=== PATIENT | female | born 1980 | race Caucasian/White ===

== ENCOUNTER → 2022-08-23 14:26 | Outpatient (CLI) | payer OTHER, SELFPAY ==
--- NOTE | 2022-08-23 14:26 | US_ITS ---
PROCEDURE INFORMATION: Exam: US Left Breast, Complete MG Bilateral Diagnostic Breast Tomosynthesis Exam date and time: 08/23/2022 2:42 PM Age: 41 years old Clinical indication: Left breast palpable lump; Left breast pain TECHNIQUE: Imaging protocol: Complete ultrasound of all four quadrants of the left breast and the retroareolar regions, including ultrasound of the axilla when performed. Bilateral Diagnostic tomosynthesis and 2D mammography including computer-aided detection (CAD) when performed. Unilateral or bilateral exam. COMPARISON: 1. MG MM MAMMO DIGITAL STEPH SCREEN BILAT 12/22/2020 10:35 AM 2. MG MM MAMMO DIGITAL STEPH SCREEN BILAT 03/08/2019 12:28 PM FINDINGS: MAMMOGRAPHY: The breast tissue is composed of scattered areas of fibroglandular density. There is no stellate mass, architectural distortion or suspicious microcalcifications in either breast to suggest malignancy. A skin marker was placed over an area of palpable concern in the left upper outer quadrant. Coarse nonspecific nodular parenchyma is identified. No skin thickening or axillary adenopathy. ULTRASOUND: Sonographic images of the left upper outer quadrant where the patient reports a palpable abnormality demonstrates a cluster of cysts with a combined dimension of 1.9 cm most closely corresponding to the nonspecific coarse nodular parenchyma on mammography. Additional deep 1.1 cm cyst in the 2 o'clock axis 7 cm from the nipple adjacent to a 1.0 cm cyst. Additional subcentimeter cystic changes noted in the 10 o'clock axis 9 cm from the nipple adjacent to a cluster of cysts with a combined dimension of 1.8 cm in the left 11 o'clock axis 7 cm from the nipple. No axillary adenopathy. IMPRESSION: Palpable abnormality in the left upper outer quadrant corresponds to underlying cystic change. Further evaluation of a palpable abnormality should be based on clinical grounds regardless of radiographic findings or lack thereof.No mammographic evidence of malignancy. Annual screening is recommended unless otherwise clinically indicated. ASSESSMENT: BI-RADS Category 2: Benign
== END ==
LOC: RAD 14:26
PROVIDERS: PCP Nurse Practitioner; Visit Provider Nurse Practitioner
DX: N60.11 Diffuse cystic mastopathy of right breast (principal); N60.12 Diffuse cystic mastopathy of left breast; N64.4 Mastodynia
CPT/HCPCS: 76641; 77062; 77066; G0279

== ENCOUNTER 2023-02-27 19:41 | Outpatient (CLI) | payer OTHER, SELFPAY ==
[2023-02-27 19:48] LABS: Adenovirus,PCR Not Detected (NotDetected); Coronavirus 19, PCR Not Detected (NotDetected); Coronavirus 229E Not Detected (NotDetected); Coronavirus NL63 Not Detected (NotDetected); Coronavirus OC43 Not Detected (NotDetected); Coronovirus HKU1,PCR Not Detected (NotDetected); Human Metapneumovirus Not Detected (NotDetected); Influenza A, PCR Not Detected (NotDetected); Influenza AH1, 2009 Not Detected (NotDetected); Influenza AH1, PCR Not Detected (NotDetected); Influenza AH3,PCR Not Detected (NotDetected); Influenza B, PCR Not Detected (NotDetected); Parainfluenza 1, PCR Not Detected (NotDetected); Parainfluenza 2, PCR Not Detected (NotDetected); Parainfluenza 3, PCR Not Detected (NotDetected); Parainfluenza 4, PCR Not Detected (NotDetected); Respiratory Syncytial Virus Not Detected (NotDetected); Rhinovirus/Enterovirus Not Detected (NotDetected)
[2023-02-27 19:56] LABS: Basophils % 0.3 % (0.1-2.0); Eosinophils % 0.1 % (0.1-12.0); Hematocrit 42.8 % (37.0-47.0); Hemoglobin 13.9 g/dL (12.2-16.2); Lymphocytes # 0.9 K/mm3 (0.7-4.5); Lymphocytes % 6.1 % (10-50); Mean Corpuscular HGB Conc 32.4 g/dL (31.8-35.4); Mean Corpuscular Hemoglobin 31.9 pg (27.0-31.2); Mean Corpuscular Volume 98.2 fl (81-99); Mean Platelet Volume 9.6 fl (7.4-10.4); Monocytes # 0.9 K/mm3 (0.1-1.0); Monocytes % 5.6 % (1.7-9.3); Neutrophils # 13.8 K/mm3 (1.8-7.8); Platelet Count 322 K/mm3 (142-424); Red Blood Count 4.35 M/mm3 (4.20-5.40); Red Cell Distribution Width 13.3 % (11.5-17.5); White Blood Count 15.7 K/mm3 (4.8-10.8)
[2023-02-27 20:02] LABS: MANUAL DIFFERENTIAL MANUAL DIFFERENTIAL (MANUAL DIFF)
[2023-02-27 20:13] LABS: Chloride 104 mmol/L (98-107)
[2023-02-27 20:14] LABS: Sodium 135 mmol/L (136-145)
[2023-02-27 20:16] LABS: Alanine Aminotransferase 18 U/L (12-78); Alkaline Phosphatase 84 U/L (38-126); Aspartate Amino Transferase 19 U/L (14-36); Bilirubin,Total 0.6 mg/dl (0.2-1.3); Blood Urea Nitrogen 8 mg/dl (7-17); Carbon Dioxide 25 mmol/L (22.0-30.0); Estimated Glomerular Filt Rate 91 ml/min (>60); GFR (African American) 110 ML/MIN (>60)
[2023-02-27 20:17] LABS: Albumin Level 3.5 g/dl (3.5-5.0); Albumin/Globulin Ratio 1.2 (1.1-1.8); Calcium 8.7 mg/dl (8.4-10.2); Glucose 117 mg/dl (74-100); Total Protein,Serum 6.5 g/dl (6.3-8.2)
[2023-02-27 20:45] LABS: Lymphocytes % 6 % (10-50); Monocytes % 3 % (2-9); Neutrophils % 90 % (42-76); Platelet Estimate Normal; RBC Morphology Normal; Total Cells Counted 100
== END 2023-02-27 23:59 ==
LOC: LAB.DROPOF 19:42
PROVIDERS: PCP Nurse Practitioner; Visit Provider Nurse Practitioner
DX: J06.9 Acute upper respiratory infection, unspecified (principal); J02.9 Acute pharyngitis, unspecified; R05.8 Other specified cough; R51.9 Headache, unspecified
CPT/HCPCS: 80053; 85007; 85025; 87581; 87632; 87635; 87798

== ENCOUNTER 2023-10-28 12:59 | Outpatient (CLI) | payer OTHER, SELFPAY ==
--- NOTE | 2023-10-28 13:00 | MM_ITS ---
PROCEDURE INFORMATION: Exam: MG Bilateral Screening 3D Mammography Exam date and time: 10/28/2023 12:49 PM Age: 42 years old Clinical indication: Screening examination TECHNIQUE: Imaging protocol: Bilateral Screening tomosynthesis and 2D mammography including computer-aided detection (CAD) when performed. COMPARISON: 1. MG MM DIG MAMM BI DX W/CAD 08/23/2022 2:42 PM 2. MG MM MAMMO DIGITAL STEPH SCREEN BILAT 12/22/2020 10:35 AM FINDINGS: MAMMOGRAPHY: Breast composition: The breasts are heterogeneously dense, which may obscure small masses. Mass: None. Architectural distortion: None. Calcifications: No suspicious calcifications. Asymmetric density: None. Skin thickening: None. Axillary adenopathy: None. IMPRESSION: No mammographic evidence of malignancy. Annual screening is recommended unless otherwise clinically indicated. ASSESSMENT: BI-RADS Category 1: Negative.
[2023-10-28 18:42] LABS: Basophils # 0.1 K/mm3 (0-0.2); Basophils % 1.3 % (0.1-2.0); Eosinophils # 0.2 K/mm3 (0.0-0.4); Eosinophils % 2.1 % (0.1-12.0); Hematocrit 46.1 % (37.0-47.0); Hemoglobin 14.2 g/dL (12.2-16.2); Lymphocytes # 1.9 K/mm3 (0.7-4.5); Lymphocytes % 24.6 % (10-50); Mean Corpuscular HGB Conc 30.7 g/dL (31.8-35.4); Mean Corpuscular Hemoglobin 30.6 pg (27.0-31.2); Mean Corpuscular Volume 99.6 fl (81-99); Monocytes # 0.5 K/mm3 (0.1-1.0); Monocytes % 6.2 % (1.7-9.3); Neutrophils % 65.8 % (37.0-80.0); Platelet Count 386 K/mm3 (142-424); Red Blood Count 4.63 M/mm3 (4.20-5.40); Red Cell Distribution Width 13.7 % (11.5-17.5); White Blood Count 7.5 K/mm3 (4.8-10.8)
[2023-10-28 19:17] LABS: Albumin Level 3.6 g/dl (3.5-5.0); Chloride 109 mmol/L (98-107); Potassium 4.1 mmoL/L (3.5-5.1); Sodium 139 mmol/L (136-145)
[2023-10-28 19:19] LABS: Blood Urea Nitrogen 12 mg/dl (7-17); Estimated Glomerular Filt Rate 109 ml/min (>60); GFR (African American) 131 ML/MIN (>60)
[2023-10-28 19:20] LABS: Alanine Aminotransferase 23 U/L (12-78); Albumin/Globulin Ratio 1.2 (1.1-1.8); Alkaline Phosphatase 76 U/L (38-126); Anion Gap 8.1 mEq/L (5-15); Aspartate Amino Transferase 22 U/L (14-36); Bilirubin,Total 0.8 mg/dl (0.2-1.3); Calcium 8.8 mg/dl (8.4-10.2); Carbon Dioxide 26 mmol/L (22.0-30.0); Cholesterol 204 mg/dl (140-200); Globulin 3.1 g/dL (1.3-3.2); Glucose 63 mg/dl (74-100); HDL Cholesterol 51 mg/dl (40-60); Total Protein,Serum 6.7 g/dl (6.3-8.2); Triglycerides 97 mg/dl (30-150); VLDL Cholesterol 19 mg/dL (0-40)
[2023-10-28 19:22] LABS: Erythrocyte Sedimentation Rate 8 mm/hr (0-20)
[2023-10-28 19:36] LABS: C-Reactive Protein 2.9 mg/L (0-4)
[2023-10-28 19:40] LABS: Direct LDL Cholesterol 126.45 mg/dL (100-129)
[2023-10-28 19:42] LABS: 25-OH Vitamin D, Total 24.2 ng/mL (30-100)
[2023-10-28 20:07] LABS: Thyroid Stimulating Hormone 0.96 uIU/mL (0.465-4.68)
[2023-10-28 21:00] LABS: Hemoglobin A1C 5.3 % (4.0-6.0)
[2023-10-28 21:45] LABS: Uric Acid 4.4 mg/dl (2.5-6.2)
[2023-10-28 22:47] LABS: Vitamin B12 362 pg/mL (239-931)
[2023-10-30 12:39] LABS: RA Latex Turbid. 10.1 IU/mL (<14.0)
[2023-10-30 15:25] LABS: Anti-Centromere B Antibodies <0.2 AI (0.0-0.9); Anti-DNA (DS) Ab Qn <1 IU/mL (0-9); Anti-Jo-1 <0.2 AI (0.0-0.9); Anti-Smith Antibody <0.2 AI (0.0-0.9); Antichromatin Antibodies <0.2 AI (0.0-0.9); Antiscleroderma-70 Antibodies <0.2 AI (0.0-0.9); RNP Antibodies 0.3 AI (0.0-0.9); Sjogren's Anti-SS-A <0.2 AI (0.0-0.9); Sjogren's Anti-SS-B <0.2 AI (0.0-0.9)
[2023-11-06 16:14] LABS: Antinuclear Antibodies, IFA Positive
== END 2023-10-28 23:59 | disposition home or self-care (01) ==
LOC: RAD 13:00
PROVIDERS: PCP Nurse Practitioner; Visit Provider Obstetrics & Gynecology
DX: Z12.31 Encounter for screening mammogram for malignant neoplasm of breast (principal); R60.0 Localized edema; M79.671 Pain in right foot; R53.83 Other fatigue; R51.9 Headache, unspecified; M25.50 Pain in unspecified joint
CPT/HCPCS: 77063; 77067; 80050; 80053; 80061; 82306; 82607; 83036; 84443; 84550; 85025; 85651; 86038; 86140; 86225; 86235; 86431

== ENCOUNTER 2023-11-14 09:30 | Outpatient (CLI) | payer OTHER, SELFPAY | END 2023-11-14 23:59 | disposition home or self-care (01) | LOC: PREOP 09:31 | PROVIDERS: PCP Nurse Practitioner; Visit Provider Otolaryngology | DX: R69 Illness, unspecified (principal) ==

== ENCOUNTER 2023-11-17 14:50 | Outpatient (CLI) | payer OTHER, SELFPAY ==
--- NOTE | 2023-11-17 14:54 | CA_ITS ---
APPROVED REPORT EXAM: Comprehensive 2D, Doppler, and color-flow Echocardiogram Photographer Apprentice: Melissa Barajas CRT Ht: 5 ft 3 in Wt: 186lbs BSA: 1.88 BP: 94/66 mmHg Indications: Peripheral Edema, weight gain in 4 weeks 2D Dimensions LA Volume 23.50 mL LA Volume Index 12.20 mL/m2 (M/F) 16-34 M-Mode Dimensions RVDd 2.42 cm (0.9-2.6) LA Diam 2.94 cm (1.9-4.0) LVDd 4.33 cm (3.5-5.7) LVDs 2.45 cm (3.5-5.7) IVSd 1.47 cm (0.6-1.1) PWd 0.91 cm (0.6-1.1) EF (Teich) 74.90% FS 43.40% EDV (Teich) 84.40 mL ESV (Teich) 21.20 mL LV Diastology E Decel Time 150 (160-240 msec) E/A Ratio 1.27 MED A' 13.70 cm/s LAT A' 8.40 cm/s Aortic Valve AO Peak GR. 6.20 mmHg Mitral Valve MV A Velocity 54.0 (40-130 cm/s) E/A Ratio 1.27 Pulmonary Valve PV Peak Velocity 142.0 (50-150 cm/s) Tricuspid Valve TR P. Velocity 293.00 cm/s RAP Estimate 10.00 mmHg RVSP 44.40 mmHg Left Ventricle The left ventricle is normal size. The left ventricular systolic function is normal. The left ventricular ejection fraction is within the normal range. There is normal left ventricular wall thickness. There is normal LV segmental wall motion. The left ventricular diastolic function is normal. LVEF is 55%. Right Ventricle The right ventricle is not very well-visualized, but grossly appears to be at least mildly dilated. Right ventricle is mildly hypokinetic. Atria The left atrium size is normal. The right atrium size is normal. There is no Doppler evidence of interatrial shunt. Aortic Valve The aortic valve opens well. There is no aortic valvular stenosis. No aortic regurgitation is present. Mitral Valve The mitral valve is normal in structure. No evidence of mitral valve stenosis. Mild mitral regurgitation. Tricuspid Valve The tricuspid valve leaflets are thin and pliable. Mild to moderate tricuspid regurgitation. RVSP is 35-40 mmHg. Pulmonic Valve The pulmonary valve is normal in structure. Trace pulmonic regurgitation. Great Vessels The aortic root is normal in size. The ascending aorta is normal in size. IVC is normal in size and collapses >50% with inspiration. Pericardium There is no pericardial effusion. Other Information Study Quality: Technically Difficult Conclusion Technically difficult study due to poor acoustic windows. Normal LV systolic function. The RV is not very well-visualized, but appears at least mildly dilated. The RV function is mildly reduced. Mild to moderate TR. Mild MR. RVSP 35-40 mmHg. Color Doppler demonstrates no evidence of interatrial shunt. In the setting of RV dysfunction, further evaluation with limited TTE and agitated saline administration (bubble study) is rule out evaluate for interatrial shunt. Cardiac MRI ([facility] protocol) is also suggested. Pulmonary workup and/or sleep evaluation may also be considered, if clinically appropriate. Electronically signed by : Raiza Ramirez MD 11/17/2023 23:23:23
== END 2023-11-17 23:59 | disposition home or self-care (01) ==
LOC: RT 14:51
PROVIDERS: PCP Nurse Practitioner; Visit Provider Nurse Practitioner
DX: R60.0 Localized edema (principal)
CPT/HCPCS: 93306

== ENCOUNTER 2023-11-18 08:05 | Day surgery (SDC) | payer OTHER, SELFPAY ==
[2023-11-14 09:40] VITALS: BMI 31.8
[2023-11-14 10:05] LABS: Urine Pregnancy, HCG Qual. Negative (Negative)
[2023-11-18] VITALS (10 sets, daily range): BP systolic 115–157; BP diastolic 73–93; PULSE 71–113; RESP 14–18; TEMP 36.3–36.7; O2SAT 92–100
[2023-11-18] MEDS: LACTATED RINGERS 1000ML 1,000 ML 25 ML IV (08:35)
--- NOTE | 2023-11-18 08:42 | P.PNANES_ITS ---
[facility] Disclaimer: The information contained in this section may have been updated after the patient was seen, as this information can be updated by other users. Medical History Positive ADDISON (antinuclear antibody) Polyarthralgia Headache Fatigue Right foot pain Bilateral lower extremity edema Enlarged tonsils Fibrocystic breast changes of both breasts Insomnia Surgical History History of endometrial ablation Family History Father Cancer Grandmother Stroke Social History Smoking Status: Never smoker alcohol intake: never substance use type: denies use current occupational status: employed Travel in the last 8 weeks: None [facility] Anesthesia Checklist Patient Identification Patient Identification: Arm Band and Verbal (Name & ) Structural Data Admitted From: Home Planned Operative Procedure/s: Tonsillectomy Consent for Planned Operative Procedure(s) Verified: Yes Verified Documents: Surgical Consent and History and Physical NPO Status Verified Time NPO: 00:00 Chart Verification Results Verified: HCG Additional verifications Anesthesia Reactions: No Hx Blood Transfusions: No Blood Transfusion Reaction: No Airway Assessment Mallampati Score:: Class I C-Spine Mobility Assessed: Yes TMJ Mobility Assessed: Yes Dentition: Good Dentition Neurological Assessment Level of Consciousness: Awake Hx Seizures: No Numbness or tingling in extremities: No Anesthesia Plan Anesthesia Risk discussed: Yes Anesthesia Plan: Verified ASA Class: II Anesthesia Type: General
[2023-11-18] MEDS: BUPIVACAINE 0.5% W/EPI 1:200,000 30ML VIAL 30 ML IJ (10:10)
--- NOTE | 2023-11-18 10:52 | P.PNANES_ITS ---
[facility] Anesthesia Record Part I Anesthesia Record I Intake, IV Amount: 800 Hydration: Adequate Estimated blood loss (mL): 10 Urine output (mL): 0 Blood Products used (#): none Blood Pressure: 137/73 SaO2: 100 Pulse Rate: 106 Airway Patency: Patent Respiratory Rate: 16 Temperature: 97.3 F Patient is:: Drowsy and Stable Stable to PACU at:: 10:50
--- NOTE | 2023-11-18 10:55 | P.OP_ITS ---
Date of procedure: 11/18/23 Pre-op Diagnosis:: Chronic tonsillitis Post-op Diagnosis:: Chronic tonsillitis Procedure performed:: Tonsillectomy Surgeon:: Robin Haney MD COMPLAINT OPERATOR:: Eldon Reyes Anesthesia: GETKristine Estimated blood loss (mL): 50 Operative findings:: 3+ enlarged inflamed tonsils Operative note:: The patient was brought to the operating room and after adequate general anesthesia the mouth was draped in the usual sterile fashion and a McIvor mouthgag placed. Tonsillectomy was then performed in the plane defined by the tonsil capsule and superior constrictor and this was done with electrocautery to simultaneously dissected and cauterized. This was done bilaterally and then tonsillar fossa's infiltrated with half percent Marcaine with epinephrine Condition: stable Disposition: PACU Complications:: No complications
--- NOTE | 2023-11-18 13:09 | P.PNANES_ITS ---
[facility] Anesthesia Record Part II Anesthesia Record Part II Discharge Time: 11:15 Destination: Surgical Day Care (OP Surgery) PACU nurse assessment reviewed?: Yes Patient Condition:: Good Anesthesia Complications:: None Swallowing reflex intact?: Yes Airway Patency: Patent Cyanosis?: No Blood Pressure: 153/93 SaO2: 100 Respiratory Rate: 16 Pulse Rate: 90 Temperature: 97.7 F Mental Status: Alert & Oriented Pain level:: 0 Nausea and/or vomitting:: None Intake, IV Amount: 0 Hydration: Adequate
== END 2023-11-18 11:50 | disposition home or self-care (01) ==
PROVIDERS: Nurse Anesthetist, Certified Registered; Visit Provider Otolaryngology
PROC: (CPT 42826; principal; 2023-11-18 09:30)
DX: J35.01 Chronic tonsillitis (principal)
CPT/HCPCS: 42826; 81025; J3490; J1100; J2250; J2405; J3010; J7120

== ENCOUNTER 2023-11-22 19:36 | Emergency (ER) | payer OTHER, SELFPAY ==
[2023-11-22 19:59] VITALS: BP 148/96; PULSE 89; RESP 18; TEMP 36.6; O2SAT 96; BMI 31.8
--- NOTE | 2023-11-22 20:00 | ED_ITS ---
Discharge Plan Disposition Patient Disposition: Home, Self-Care Prescriptions Prescriptions: New amoxicillin 500 mg capsule 1,000 mg PO TID 5 Days Qty: 30 0RF azithromycin 250 mg tablet 250 mg PO DAILY 4 Days Qty: 4 0RF Rx Instructions: start on day 2 of therapy (day after ED visit) No Action cholecalciferol (vitamin D3) 125 mcg (5,000 unit) tablet 125 mcg PO DAILY Qty: 30 5RF hydrocodone-acetaminophen 7.5-325 mg/15 mL solution 15 ml PO Q6H PRN (Reason: pain) 7 Days Qty: 473 0RF prednisone 5 mg/5 mL solution 10 mg PO DAILY 4 Days Qty: 40 0RF Tetracaine Lollipops (0.5%) 1 ea lozenge on a handle 1 ea PO Q1H MDD use x 1min q1h prn PRN (Reason: pain (scale score 4-6)) 7 Days Qty: 4 1RF Rx Instructions: 0.5% tetracaine lollipops promethazine 25 mg tablet 25 mg PO Q6H PRN (Reason: nausea and vomiting) Qty: 14 0RF Tetracaine Lollipops (0.5%) 1 ea lozenge on a handle 1 ea PO Q1H MDD use q1h x 1 min prn PRN (Reason: pain (scale score 4-6)) 7 Days Qty: 4 1RF Rx Instructions: 0.5% tetracaine lollipops Referrals Follow up/Referrals: Malena Grimaldo APRN [Primary Care Provider] - See instructions Activity Restrictions/Add. Instructions Additional Instructions/Restrictions: Your workup today revealed lingual swelling consistent with tonsillitis as well as apical multifocal pneumonia. Please take antibiotics as prescribed follow-up with ENT as soon as possible as well as your primary care doctor and return with any significant shortness of breath difficulty swallowing or breathing or other concerns. Clinical Impressions Clinical Impression: Post-operative pain, Acute dehydration, Acute lingual tonsillitis, Multifocal pneumonia Print Language Print Language: Kyrgyz Discharge ED Provider: Collins Snyder General Adult HPI General Chief complaint: PAIN Stated complaint: Pain from tonsille removalon Friday Time Seen by Provider: 11/22/23 19:44 History of Present Illness HPI narrative: Patient is a 42-year-old female who is several days postop from a T&A from Dr. Haney. She states that she had pain control for about 24 hours but since that time has had progressively worsening pain despite prescribed medications and has got to the point where it has been unbearable. She does feel some discomfort particular in the left side of her surgical site and into her neck. No significant swelling fevers chills she does states she is having a hard time opening her jaw but no drooling or stridor. Has had difficult time eating secondary to the discomfort. Urine output has been normal. Denies any other significant past medical history. Related Data Previous Rx's ?Medication ?Instructions ?Recorded cholecalciferol (vitamin D3) 125 125 mcg PO DAILY #30 tabs 11/06/23 mcg (5,000 unit) tablet Tetracaine Lollipops (0.5%) 1 ea 1 ea PO Q1H PRN pain (scale score 11/18/23 lozenge on a handle 4-6) 7 days #4 ea Tetracaine Lollipops (0.5%) 1 ea 1 ea PO Q1H PRN pain (scale score 11/18/23 lozenge on a handle 4-6) 7 days #4 ea hydrocodone 7.5 mg-acetaminophen 15 ml PO Q6H PRN pain 7 days #473 11/18/23 325 mg/15 mL oral solution mL prednisone 5 mg/5 mL oral solution 10 mg (10 mL) PO DAILY 4 days #40 11/18/23 mL promethazine 25 mg tablet 25 mg PO Q6H PRN nausea and 11/18/23 vomiting #14 tabs amoxicillin 500 mg capsule 1,000 mg (2 x 500 mg) PO TID 5 11/22/23 days #30 caps azithromycin 250 mg tablet 250 mg PO DAILY 4 days #4 tabs 11/22/23 Allergies Allergy/AdvReac Type Severity Reaction Status Date / Time aspartame Allergy Mild Swelling Verified 11/18/23 08:24 of Lip/Tongue/Throat hydrochlorothiazide Allergy Mild Swelling Verified 11/18/23 08:24 of Lip/Tongue/Throat Latex, Natural Rubber Allergy Mild Rash Verified 11/18/23 08:24 adhesive tape Allergy Rash Verified 11/18/23 08:24 nasal spray Allergy Mild Swelling Uncoded 11/14/23 09:37 of the Eye [facility] Disclaimer: The information contained in this section may have been updated after the patient was seen, as this information can be updated by other users. Medical History Positive ADDISON (antinuclear antibody) Polyarthralgia Headache Fatigue Right foot pain Bilateral lower extremity edema Enlarged tonsils Fibrocystic breast changes of both breasts Insomnia Surgical History History of endometrial ablation Family History Father Cancer Grandmother Stroke Social History (Updated 11/18/23 @ 08:43 by Kyree Mcclure CRNA) Smoking Status: Never smoker alcohol intake: never substance use type: denies use current occupational status: employed Travel in the last 8 weeks: None ROS Obtained: Yes All systems reviewed & no additional complaints except as documented Physical Exam General General appearance: alert and in no apparent distress ENT ENT exam: Present other (Mucous membranes are dry, surgical fossa's have appropriate eschars without any evidence of bleeding or soft tissue swelling or asymmetry in the soft tissues no trismus tolerating secretions well without any stridor) Neck Neck exam: Present other (Symmetric soft tissues in the neck no significant lymphadenopathy or swelling); Absent lymphadenopathy Respiratory Respiratory exam: Present normal lung sounds bilaterally Cardiovascular Cardiovascular exam: Present regular rate Neurological Exam Neurological exam: Present alert and oriented X3 Medical Decision Making Medical Records Screening: Per USPSTF and CDC recommendations, given the prevalence of disease in our region, it is our hospital?s policy to screen for HIV and viral Hepatitis for all patients aged 18 and over and those with ongoing risk factors. Manoj Inquiry Pt receiving controlled substance: No Vital Signs: 11/22/23 19:59 11/22/23 20:35 11/22/23 21:31 Temperature 97.8 F Temperature Source Oral Pulse Rate 85 66 Pulse Rate [Left Radial] 89 Respiratory Rate 18 Blood Pressure 138/84 123/73 Blood Pressure [Right Arm] 148/96 H Blood Pressure Mean 108 89 Blood Pressure Mean [Right Arm] 113 Blood Pressure Source [Right Arm] Automatic Cuff 02 Sat by Pulse Oximetry 96 96 99 Oxygen Delivery Method Room Air Room Air Room Air 11/22/23 22:00 Temperature Temperature Source Pulse Rate 64 Pulse Rate [Left Radial] Respiratory Rate Blood Pressure 113/72 Blood Pressure [Right Arm] Blood Pressure Mean Blood Pressure Mean [Right Arm] Blood Pressure Source [Right Arm] 02 Sat by Pulse Oximetry 97 Oxygen Delivery Method Lab Data Lab results reviewed: Yes I reviewed the patient's lab results. Lab Results 11/22/23 20:38: WBC 9.1, RBC 4.09 L, Hgb 12.5, Hct 38.0, MCV 92.9, MCH 30.5, MCHC 32.8, RDW 13.2, Plt Count 331, MPV 7.8, Neut % (Auto) 51.6, Lymph % (Auto) 37.1, [place] % (Auto) 7.9, Eos % (Auto) 2.6, Baso % (Auto) 0.9, Neut # (Auto) 4.7, Lymph # (Auto) 3.4, [place] # (Auto) 0.7, Eos # (Auto) 0.2, Baso # (Auto) 0.1, Sodium 138, Potassium 3.1 L, Chloride 105, Carbon Dioxide 27, Anion Gap 9.1, BUN 7, Creatinine 0.60, Estimated Creat Clear 154, Estimated GFR 109, Est GFR ( Amer) 131, Glucose 92, Calcium 8.5, Total Bilirubin 0.5, AST 19, ALT 20, Alkaline Phosphatase 68, Total Protein 6.5, Albumin 3.4 L, Globulin 3.1, Albumin/Globulin Ratio 1.1, HIV 1&2 Antibody Rapid Nonreactive 11/22/23 20:38 11/22/23 20:38 Orders (Tests/Meds): ED MEDICATIONS Generic Name Dose Route Start Last Admin Trade Name Freq PRN Reason Stop Dose Admin Amoxicillin 1,000 mg 11/22/23 22:22 Amoxicillin 500mg Capsule PO 11/22/23 22:23 ONCE ONE Azithromycin 500 mg 11/22/23 22:22 Azithromycin 250mg Tablet PO 11/22/23 22:23 ONCE ONE Discontinued Medications Generic Name Dose Route Start Last Admin Trade Name Freq PRN Reason Stop Dose Admin Hydromorphone HCl 0.5 mg 11/22/23 19:58 11/22/23 20:08 Hydromorphone 2mg/Ml Syringe IV 11/22/23 19:59 0.5 mg ONCE ONE Administration Hydromorphone HCl 1 mg 11/22/23 20:39 11/22/23 20:49 Hydromorphone 2mg/Ml Syringe IV 11/22/23 20:40 1 mg ONCE ONE Administration Lactated Ringer's 1,000 mls @ 999 mls/hr 11/22/23 20:00 11/22/23 20:09 Lactated Ringer's 1000 Ml Bag IV 11/22/23 21:00 999 mls/hr .Q1H1M EDDIE Administration Iopamidol 75 ml 11/22/23 20:56 11/22/23 21:01 Iopamidol-370 (76%);100ml Bottle IV 11/22/23 20:57 75 ml ONCE ONE Administration Ondansetron HCl 4 mg 11/22/23 19:58 11/22/23 20:09 Ondansetron 4mg/2ml Vial IV 11/22/23 19:59 4 mg ONCE ONE Administration ORDERS Category Date Time Status CT soft tissue neck w con Stat Cat Scan 11/22/23 20:34 Completed CBC w/Auto Diff [Complete Blood Count Auto Diff] Stat Lab 11/22/23 20:38 Completed CMP [Comprehensive Metabolic Panel] Stat Lab 11/22/23 20:38 Completed HIV (1&2) Antibody Rapid Stat Lab 11/22/23 20:38 Completed Hep C Ab with Reflex to RNA Stat Lab 11/22/23 20:38 Received Medical Decision Narrative: Patient is 4 days postop from a tonsil and adenoidectomy with Dr. Haney with significant and worsening postoperative pain within normal exam. No evidence of any hemorrhage no soft tissue swelling or abnormalities to suggest a large hematoma or infection at the moment. She does have some evidence of dehydration I will give her IV fluids and IV pain medicine nausea medicine and reassess. We discussed the risk and benefits of CT imaging but at the moment I feel like radiation exposure in this young patient without an objective indication would be more harmful than beneficial at the moment. I do not suspect that she has a peritonsillar abscess or retropharyngeal abscess or large hematoma that would require surgical evacuation. After reassessment patient still in severe pain requiring multiple doses of opiates therefore I get a CT scan of her soft tissues as well as did some basic blood work CT scan performed to person interpreted I do not see any emergent medical condition associate with this however radiology reviewed this and there was some apical infiltrates consistent with multifocal pneumonia as well as lingual swelling that is consistent with lingual tonsillitis therefore she was prescribed amoxicillin as well as azithromycin advised to closely follow-up with ENT and her primary care doctor and return to the significant worsening of her symptoms she was able to tolerate p.o. upon being discharged and was much more comfortable and breathing comfortably. Critical Care Critical Care Time Critical Care Time: No
[2023-11-22] MEDS: HYDROMORPHONE 2MG/ML SYRINGE 0.5 MG IV (20:08)
[2023-11-22] MEDS: LACTATED RINGERS 1000ML 1,000 ML 999 ML IV (20:09)
[2023-11-22] MEDS: ONDANSETRON 4MG/2ML VIAL 4 MG IV (20:09)
--- NOTE | 2023-11-22 20:34 | CT_ITS ---
PROCEDURE INFORMATION: Exam: CT Neck With Contrast Exam date and time: 11/22/2023 8:47 PM Age: 42 years old Clinical indication: Neck pain and painful swallowing; Prior surgery; Surgery date: 3-7 days post-operative; Surgery type: Post operative t a; Additional info: Post operative t a swelling/pain l>r TECHNIQUE: Imaging protocol: Computed tomography of the neck with contrast. Radiation optimization: All CT scans at this facility use at least one of these dose optimization techniques: automated exposure control; mA and/or kV adjustment per patient size (includes targeted exams where dose is matched to clinical indication); or iterative reconstruction. Contrast material: ISOVUE; Contrast volume: 75 ml; Contrast route: IV; COMPARISON: No relevant prior studies available. FINDINGS: Salivary glands: Normal. Glands are normal in size. Pharynx: There is mild enlargement and enhancement of the lingual tonsils. No peripherally enhancing fluid collection to suggest mary abscess formation. Very minimal prominence of the nasopharynx and the palatine tonsils. Prevertebral and retropharyngeal spaces: Unremarkable. Larynx: Unremarkable. Epiglottis is normal. Thyroid: Normal. No enlarged or calcified nodules. Trachea: Visualized trachea is unremarkable. Lungs: Multiple small pulmonary infiltrates are seen in the right upper lobe of the lung. Some pulmonary infiltrates also noted in the left upper lobe and the visualized bilateral lower lobes. Findings are concerning for multifocal pneumonia. Lymph nodes: Scattered small and borderline prominent cervical lymph nodes which are nonenlarged by CT size criteria. For reference, a left II lymph node measuring approximately 1.6 x 0.9 cm, (series 3, image 46), and a similar finding on the right with a right level II lymph node measuring approximately 0.9 x 1.7 cm, (series 3, image 46). There are additional smaller lymph nodes in the neck stations normal signal which with fatty hilum. Findings are nonspecific. A borderline enlarged II/III lymph node measuring approximately 1.0 x 1.5 cm, (3, image 51). Bones/joints: Mild degenerative changes of the cervical spine. Straightening of the cervical lordosis. Disc osteophyte complex at C4-C5 and C5-C6 resulting in mild compression on the ventral thecal sac and mild spinal canal stenosis. Soft tissues: Unremarkable. No significant soft tissue swelling. IMPRESSION: 1. Mild enlargement and enhancement of the lingual tonsils, concerning for acute tonsillitis. No peripherally enhancing fluid collection to suggest mary abscess formation. 2. Small and borderline enlarged cervical lymph nodes are nonspecific and likely reactive. 3. Findings concerning for multifocal pneumonia.
[2023-11-22 20:35] VITALS: BP 138/84; PULSE 85; O2SAT 96
[2023-11-22] MEDS: HYDROMORPHONE 2MG/ML SYRINGE 1 MG IV (20:49)
[2023-11-22 20:54] LABS: Chloride 105 mmol/L (98-107)
[2023-11-22 20:55] LABS: Albumin Level 3.4 g/dl (3.5-5.0); Potassium 3.1 mmoL/L (3.5-5.1); Sodium 138 mmol/L (136-145)
[2023-11-22 20:57] LABS: Alanine Aminotransferase 20 U/L (12-78); Anion Gap 9.1 mEq/L (5-15); Aspartate Amino Transferase 19 U/L (14-36); Blood Urea Nitrogen 7 mg/dl (7-17); Carbon Dioxide 27 mmol/L (22.0-30.0); Creatinine Clearance Estimated 154 mL/min (50-200); Estimated Glomerular Filt Rate 109 ml/min (>60); GFR (African American) 131 ML/MIN (>60)
[2023-11-22 20:58] LABS: Albumin/Globulin Ratio 1.1 (1.1-1.8); Alkaline Phosphatase 68 U/L (38-126); Bilirubin,Total 0.5 mg/dl (0.2-1.3); Calcium 8.5 mg/dl (8.4-10.2); Globulin 3.1 g/dL (1.3-3.2); Glucose 92 mg/dl (74-100); Total Protein,Serum 6.5 g/dl (6.3-8.2)
[2023-11-22] MEDS: IOPAMIDOL-370 (76%);100ML BOTTLE 75 ML IV (21:01)
[2023-11-22 21:18] LABS: Basophils # 0.1 K/mm3 (0-0.2); Basophils % 0.9 % (0.1-2.0); Eosinophils # 0.2 K/mm3 (0.0-0.4); Eosinophils % 2.6 % (0.1-12.0); Hemoglobin 12.5 g/dL (12.2-16.2); Lymphocytes # 3.4 K/mm3 (0.7-4.5); Lymphocytes % 37.1 % (10-50); Mean Corpuscular HGB Conc 32.8 g/dL (31.8-35.4); Mean Corpuscular Hemoglobin 30.5 pg (27.0-31.2); Mean Corpuscular Volume 92.9 fl (81-99); Mean Platelet Volume 7.8 fl (7.4-10.4); Monocytes # 0.7 K/mm3 (0.1-1.0); Monocytes % 7.9 % (1.7-9.3); Neutrophils # 4.7 K/mm3 (1.8-7.8); Neutrophils % 51.6 % (37.0-80.0); Platelet Count 331 K/mm3 (142-424); Red Blood Count 4.09 M/mm3 (4.20-5.40); Red Cell Distribution Width 13.2 % (11.5-17.5); White Blood Count 9.1 K/mm3 (4.8-10.8)
[2023-11-22 21:31] VITALS: BP 123/73; PULSE 66; O2SAT 99
[2023-11-22 21:34] LABS: HIV (1&2) Antibody Rapid NONREACTIVE (NONREACTIVE)
[2023-11-22 22:00] VITALS: BP 113/72; PULSE 64; O2SAT 97
[2023-11-22] MEDS: AZITHROMYCIN 250MG TABLET 500 MG PO (23:03)
[2023-11-22] MEDS: AMOXICILLIN 500MG CAPSULE 1000 MG PO (23:03)
[2023-11-22 23:09] VITALS: BP 128/75; PULSE 64; RESP 16; TEMP 36.6; O2SAT 98
[2023-11-25 05:15] LABS: HCV Ab Non Reactive (Non Reactive)
== END 2023-11-22 23:10 | disposition home or self-care (01) ==
PROVIDERS: Emergency Provider Student in an Organized Health Care Education/Training Program; PCP Nurse Practitioner
DX: E86.0 Dehydration (principal); J03.90 Acute tonsillitis, unspecified; J18.9 Pneumonia, unspecified organism; G89.18 Other acute postprocedural pain
CPT/HCPCS: 70491; 80053; 85025; 86803; 87389; 96360; 96374; 96375; 99285; J1170; J2405; J7120; Q9967